=== PATIENT | male | born 1965 | race Caucasian/White ===

== ENCOUNTER 2017-06-13 08:54 | Emergency (ER) | payer BC, OTHER ==
[~2017-06-13] VITALS: Ht 182.9 cm; Wt 66.9 kg
[~2017-06-13 08:54] MED LIST: QUIL PO
[2017-06-13 09:09] VITALS: TEMP 36.8; Ht 182.9 cm; Wt 66.9 kg
[2017-06-13] MEDS ORDERED: PROPARACAINE HCL 0.5% OP SOLN 15 ML BTL OP STA (09:12)
[2017-06-13] MEDS ORDERED: CIPROFLOXACIN HCL 0.3% OP SOLN 2.5 ML BTL OP STA (09:33)
[2017-06-13] MEDS ORDERED: CIPR0.3S OP (09:36)
[2017-06-13] MEDS ORDERED: VALA1TAB31 PO (09:36)
--- NOTE | 2017-06-13 09:38 | EMERGENCY ROOM VISIT NOTE ---
History First contact with patient: 09:03 Chief Complaint: EYE ASSESSMENT Stated Complaint: SOMETHING IN RIGHT EYE History of Present Illness The patient is a 51 year old male who presents to the Emergency Room via private vehicle accompanied by female with complaints of "something in right eye ". The patient states that this past Thursday he was working and was blowing dust, noting that later that day his right eye became irritated. He notes it was most of the concrete dust. He now rates irritation is a 3/10. There is blurred vision. He also developed a small little rash in the corner of his right eye. Tetanus is up-to-date. Review of Systems A complete 6-point Review of Systems was discussed with the patient, with pertinent positives and negatives listed in the History of Present Illness. All remaining Review of Systems questions can be considered negative unless otherwise specified. Past Medical/Surgical History No pertinent. Family History No pertinent. Social History Smoking Status: Current Every Day Smoker Marital Status: Housing Status: lives with significant other Occupation Status: employed Current/Historical Medications Scheduled Ciprofloxacin Hcl (Ophth) (Ciloxan Oph), 1 DROP OP DIRECTED Valacyclovir Hcl (Valtrex), 1 GM PO TID Physical Exam Vital Signs Date Time Temp Pulse Resp B/P (MAP) Pulse Ox O2 Delivery O2 Flow Rate FiO2 06/13/17 10:03 74 18 148/96 99 Room Air 06/13/17 09:09 36.8 82 20 160/101 97 Room Air Right Eye Acuity: 20/200 without glasses Left Eye Acuity: 20/30 without glasses Physical Exam VITAL SIGNS - Vital signs and nursing notes were reviewed. Stable. GENERAL - 51-year-old male appearing his stated age. Communicates well with provider and answers questions appropriately. HEAD - Normocephalic, Atraumatic. No Diaz's Sign or Raccoon's Eyes. No depressed skull fractures palpable. EYES - PERRL with EOMI bilaterally. Sclera without noticeable foreign body or excoriations. Bulbar conjunctival injection noted in the R eye. Without subconjunctival hemorrhage. No Hyphema. Slit lamp examination performed as further described. EARS - No deformities of external structures noted on gross examination bilaterally. Handle of malleus, umbo, cone of light, pars tensa/flaccid all easily visualized. NOSE - Midline and without cyanosis. Without discharge. MOUTH/OROPHARYNX - Without perioral cyanosis. Slit Lamp Examination was performed of the R eye(s). Alcaine drops were applied to the affected eye(s) for proper anesthetization. The affected eye(s) were stained with Fluorescein stain to precipitate adequate visualization of any conjunctival/scleral excoriations or ulcers. The patient's face was comfortably rested on the chin guard of the slit lamp apparatus. The lights were dimmed and the affected eye(s) were thoroughly examined under microscopy using the blue light. Central axis uptake was present in a dendritic fashion. Additionally, the eye(s) were examined under microscopy using the regular light. Close examination revealed dendritic corneal lesion. Patient tolerated the procedure well and no complications were met. Medical Decision & Procedures Medications Administered Medications (Trade) Dose Ordered Sig/Humberto Route Start Time Stop Time Status Last Admin Dose Admin Proparacaine HCl (Alcaine 0.5% Oph Soln) 1 drops NOW STAT OP 06/13/17 09:12 06/13/17 09:14 DC 06/13/17 09:12 1 DROPS Valacyclovir HCl (Valtrex Tab) 1,000 mg NOW STAT PO 06/13/17 09:33 06/13/17 09:35 DC 06/13/17 09:56 1,000 MG Ciprofloxacin HCl (Ciprofloxacin 0.3% Op Soln) 1 drops NOW STAT OP 06/13/17 09:33 06/13/17 09:35 DC 06/13/17 09:56 1 DROPS Medical Decision Patient was seen and evaluated as above. The patient presents to us today with right eye discomfort. There is a small rash at the lateral canthus of the right eye. The concern with the slit lamp exam as there is dendritic lesions suggestive of herpes zoster ophthalmicus. 1 g of Valtrex was given as well as Ciloxan eyedrops. Case was discussed with the attending, as well as the on- call gold beater, Dr. Tam. He recommends Valtrex, and lubricating eyedrops or an antibiotic drop. I elected to use Ciloxan. The patient appears stable for outpatient management, and is to call the gold beater first thing Thursday morning. He is to return if worsening. He was educated upon worrisome symptoms in which to return, had questions a discharge, and was discharged home in good condition. In the evaluation and treatment of this patient, the following differential diagnoses were considered: Corneal Abrasion, Conjunctivitis, Eye Contusion, Globe Injury, Orbital Floor Injury (Blowout Fracture), Corneal Ulcer, Keratitis , Herpes Zoster Opthalmic, Blepharitis, Orbital Cellulitis, Iritis, Scleritis/ Episcleritis, Uveitis, Temporal Arteritis, Subconjunctival Hemorrhage. Impression Primary Impression: Corneal abrasion Departure Information Dispostion Home / Self-Care Condition GOOD Prescriptions Ciprofloxacin Hcl (Ophth) (CILOXAN OPH) 0.3 % Martita 1 DROP OP DIRECTED, #1 BTL Prov: Galindo Murry PA-C 06/13/17 Valacyclovir Hcl (VALTREX) 1 Gm Tab 1 GM PO TID, #20 TAB Prov: Galindo Murry PA-C 06/13/17 Referrals Damion Aden M.D. (MEDICAL) (PCP) Jaret Tam D.O. Patient Instructions My [facility] Additional Instructions You have been treated in the Emergency Department today for your Corneal Abrasion and concern for shingles in your right eye (herpes zoster ophthalmicus) . You have been prescribed Ciloxan eye drops. This is an antibiotic which will help to prevent an infection from developing in your affected eye. You should use 2 drops in the affected eye every 2 hours while awake for the first 2 days, then every 4 hours for the remaining 5 days. This is a total of a 7-day course for these antibiotic eye drops. You been prescribed Valtrex. This is one gram every 8 hours for 7 days. This is to help treat any potential shingles infection. For pain control, you can use the following [id number] medicines: - Regular strength (325mg/tab) Tylenol (acetaminophen) 2 tabs every 4-6 hours as needed. Do not exceed 12 tablets in a 24 hour period. Avoid taking more than 3 grams (3000 mg) of Tylenol per day. This includes any other sources of acetaminophen you may take on a regular basis. - Regular strength (200 mg/tab) Advil (ibuprofen) 1-2 tabs every 4-6 hours as needed. Do not exceed a dose of 3200 mg per day. You should relax in a quiet, dark place for the rest of the day. You should wear sunglasses while outside for the next few days until your eyes are not as sensitive to the light. You should schedule a follow-up appointment in 2-3 days with your Primary Care Provider or established Eye Doctor (Operations Staff [employer]ist [employer]) for further evaluation and treatment of your Corneal Abrasion. Please call Dr. Tam thursday morning. Please also call workmans comp Return to the Emergency Department if your current symptoms worsen despite treatment course outlined above, or if you develop any of the following symptoms : intractable pain, visual disturbances, loss of vision, increased redness, swelling, drainage, or if you develop a fever.
[2017-06-13 10:03] VITALS: BP 148/96; PULSE 74; O2SAT 99
== END 2017-06-13 10:09 | disposition home or self-care (01) ==
LOC: C.EDA 09:22
DX: S05.01XA Injury of conjunctiva and corneal abrasion without foreign body, right eye, initial encounter (principal); X58.XXXA Exposure to other specified factors, initial encounter; Y92.9 Unspecified place or not applicable; F17.210 Nicotine dependence, cigarettes, uncomplicated

== ENCOUNTER 2017-09-19 09:40 | Emergency (ER) | payer OTHER ==
[~2017-09-19] VITALS: Ht 180.3 cm; Wt 68.0 kg
[2017-09-19 09:42] VITALS: TEMP 36.8; Ht 180.3 cm; Wt 68.0 kg
--- NOTE | 2017-09-19 11:20 | DIAGNOSTIC IMAGING REPORT ---
R RIBS UNILATERAL WITH PA CHEST CLINICAL HISTORY: Right lower rib pain status post trauma COMPARISON STUDY: Chest x-ray dated 08/28/2010 FINDINGS: The erect chest reveals no pneumothorax. There is no focal pulmonary consolidation. There are acute fractures of the right 10th and 11th ribs. There is a trace right pleural effusion IMPRESSION: 1. Acute fractures of the right 10th and 11th ribs. Trace right pleural effusion. No pneumothorax identified. Electronically signed by: Efraín Morales M.D. 09/19/2017 11:18 AM Dictated Date/Time: 09/19/2017 11:16 AM
--- NOTE | 2017-09-19 11:22 | DIAGNOSTIC IMAGING REPORT ---
LUMBAR SPINE 2 OR 3 VIEWS CLINICAL HISTORY: lower back pain COMPARISON STUDY: No previous studies for comparison. FINDINGS: There are acute fractures of the right 10th and 11th ribs. There is a trace right pleural effusion. There is a mild spinal curvature convex to the left. There are moderate degenerative changes with disc space narrowing at the L5-S1 level. No acute lumbar vertebral body fractures or subluxations are visualized. There are scattered air-fluid levels within the abdomen, likely secondary to a mild ileus. IMPRESSION: 1. No acute lumbar fractures or subluxations identified 2. Moderate degenerative changes the L5-S1 level 3. Fractures of the right 10th and 11th ribs. Small right pleural effusion. Electronically signed by: Efraín Morales M.D. 09/19/2017 11:20 AM Dictated Date/Time: 09/19/2017 11:19 AM
[2017-09-19] MEDS ORDERED: OXYCODONE HCL IR 5 MG TAB (IMMEDIATE RELEASE) PO STA (11:27)
[2017-09-19] MEDS ORDERED: OXYC1TAB3 PO (11:31)
[2017-09-19 11:36] VITALS: BP 136/95; PULSE 82; O2SAT 98
--- NOTE | 2017-09-19 13:50 | EMERGENCY ROOM VISIT NOTE ---
History Report prepared by Jayne: Moose Durant Under the Supervision of: Dr. Fan Junior D.O. First contact with patient: 09:47 Chief Complaint: BACK INJURY Stated Complaint: HURT BACK History of Present Illness The patient is a 51 year old male who presents to the Emergency Room with complaints of constant lower back pain beginning two nights ago. He notes his pain radiates to his ribs and twisting makes it worse. The patient states he was playing football and was tackled onto a light in the floor. He notes he has tried ice and heat, but they are not working. He reports he was celebrating the end of classes for work. The patient notes he works on the [employer]. He states he does not have any other past medical history, and he does not take medication. The patient denies urinary symptoms. Source of History: patient Onset: two nights ago Position: back (lower) Timing: constant Modifying Factors (Worsening): other (twisting) Associated Symptoms: No urinary symptoms Review of Systems See HPI for pertinent positives & negatives. A total of 10 systems reviewed and were otherwise negative. Past Medical & Surgical No pertinent past medical history stated. Family History Patient reports no known family medical history. Social History Smoking Status: Current Every Day Smoker Marital Status: Housing Status: lives with significant other Occupation Status: employed Current/Historical Medications Scheduled PRN Oxycodone Immediate Rel Tab (Roxicodone Ir), 5 MG PO Q6H PRN for Pain Allergies Coded Allergies: No Known Allergies (Verified , 09/19/17) Physical Exam Vital Signs Date Time Temp Pulse Resp B/P (MAP) Pulse Ox O2 Delivery O2 Flow Rate FiO2 09/19/17 11:36 82 20 136/95 98 Room Air 09/19/17 09:42 36.8 85 18 160/93 99 Room Air Physical Exam GENERAL: alert, well appearing, well nourished, no distress, non-toxic HEAD: normal cephalic, atraumatic EYE EXAM: normal conjunctiva OROPHARYNX: no exudate, no erythema, lips, buccal mucosa, and tongue normal and mucous membranes are moist EARS: TMs clear b/l NECK: supple, no nuchal rigidity, no adenopathy, non-tender CHEST: stable to compression anteriorly and posteriorly LUNGS: clear to auscultation. Normal chest wall mechanics HEART: no murmurs, S1 normal and S2 normal ABDOMEN: abdomen soft, non-tender, normo-active bowel sounds, no masses, no rebound or guarding. PELVIS: stable to compression anteriorly and posteriorly BACK: Abrasion over the right lower lumbar and paraspinal region that is tender to palpation. UPPER EXTREMITIES: full active and passive range of motion of all joints without tenderness to palpation LOWER EXTREMITIES: Flexion and extension of the hip, knee, ankle, and EHL 5/5 bilaterally. Gross sensation intact. DP 2/4. Patellar and Achilles reflexes are 2/4. Able to walk on heels and toes. NEURO EXAM: Normal sensorium, cranial nerves II-XII grossly intact, normal speech, no gross weakness of arms, no gross weakness of legs. GCS: 15. Medical Decision & Procedures ER Provider Diagnostic Interpretation: Radiology results as stated below per my review and the radiologist's interpretation: R RIBS UNILATERAL WITH PA CHEST CLINICAL HISTORY: Right lower rib pain status post trauma COMPARISON STUDY: Chest x-ray dated 08/28/2010 FINDINGS: The erect chest reveals no pneumothorax. There is no focal pulmonary consolidation. There are acute fractures of the right 10th and 11th ribs. There is a trace right pleural effusion IMPRESSION: 1. Acute fractures of the right 10th and 11th ribs. Trace right pleural effusion. No pneumothorax identified. Electronically signed by: Efraín Morales M.D. 09/19/2017 11:18 AM Dictated Date/Time: 09/19/2017 11:16 AM LUMBAR SPINE 2 OR 3 VIEWS CLINICAL HISTORY: lower back pain COMPARISON STUDY: No previous studies for comparison. FINDINGS: There are acute fractures of the right 10th and 11th ribs. There is a trace right pleural effusion. There is a mild spinal curvature convex to the left. There are moderate degenerative changes with disc space narrowing at the L5-S1 level. No acute lumbar vertebral body fractures or subluxations are visualized. There are scattered air-fluid levels within the abdomen, likely secondary to a mild ileus. IMPRESSION: 1. No acute lumbar fractures or subluxations identified 2. Moderate degenerative changes the L5-S1 level 3. Fractures of the right 10th and 11th ribs. Small right pleural effusion. Electronically signed by: Efraín Morales M.D. 09/19/2017 11:20 AM Dictated Date/Time: 09/19/2017 11:19 AM Medications Administered Medications (Trade) Dose Ordered Sig/Humberto Route Start Time Stop Time Status Last Admin Dose Admin Oxycodone HCl (Roxicodone Immediate Rel Tab) 5 mg NOW STAT PO 09/19/17 11:27 09/19/17 11:28 DC 09/19/17 11:36 5 MG ED Course ED COURSE: Vital signs were reviewed and showed situational hypertension. The patients medical record was reviewed The above diagnostic studies were performed and reviewed. ED treatments and interventions as stated above. 0948: The patient was evaluated in room B12B. A complete history and physical examination was performed. 1124: Upon reevaluation, the patient is is feeling better but still in some discomfort. I discussed my findings with the patient and he understands and agrees with the treatment plan. 1127: Ordered Oxycodone HCl 5mg PO Based on the patients age, coexisting illnesses, exam and lab findings the decision to treat as an outpatient was made. The patient remained stable while under my care. The patient appeared well at the time of discharge. Medical Decision Differential diagnoses include major intracranial, cervical, spinal, thoracic, abdominal, pelvic and neurologic injury. Fracture, contusion, sprain, strain, laceration, abrasions included as well. Patient is a 51-year-old male who presents to ER for given tackled on . He is having severe right lower flank pain. He is acutely tender over palpation of his ribs. X-rays of the lumbar spine and ribs confirmed to rib fractures. There is no large pleural effusion. He has been stable since this past . I did not obtain blood work. Vitals are stable. Patient was updated bedside. He was discharged with pain medications follow-up with PCP as an outpatient. Discussed with Pt concerning signs and symptoms to watch out for. Pt was instructed to follow up with their PCP and discussed with the patient their option to return to the ED at anytime for persistent or worsening symptoms. The appropriate anticipatory guidance and out-patient management, including indications for return to the emergency department, were explained at length to the patient and understood. [place] Drug Monitoring Program Search Results: patient reviewed within database, no issues identified Medication Reconcilliation Current Medication List: was personally reviewed by me Blood Pressure Screening Patient's blood pressure: Elevated blood pressure Blood pressure disposition: Elevated BP felt to be situational Impression Primary Impression: Rib fractures Scribe Attestation The scribe's documentation has been prepared under my direction and personally reviewed by me in its entirety. I confirm that the note above accurately reflects all work, treatment, procedures, and medical decision making performed by me. Departure Information Dispostion Home / Self-Care Prescriptions Oxycodone Immediate Rel Tab (ROXICODONE IR) 5 Mg Tab 5 MG PO Q6H Y for Pain, #14 TAB Prov: Fan Junior, DO 09/19/17 Referrals Damion Aden M.D. (MEDICAL) (PCP) Forms HOME CARE DOCUMENTATION FORM, IMPORTANT VISIT INFORMATION Patient Instructions Fx Sandra Munguia [facility] Additional Instructions Please follow up with your primary care doctor with in the next 24 hours. Any worsening of your symptoms, please return to the ED immediately. This includes any fevers greater than 100.4, worsening pain, chest pain, shortness breath, persistent nausea, vomiting, unable to eat or drink, or any other concerning signs or symptoms from your standpoint. You were given medications during this visit that will inhibit your ability to drive, operate machinery and work. Please do NOT drive, operate machinery or work for the next 12hrs. You were also given a prescription for a narcotic. While taking this medication you should also not drive, operate machinery and or work. Please refrain from any heavy lifting, twisting or turning until your pain completely resolved. Problem Qualifiers Primary Impression: Rib fractures Encounter type: initial encounter Rib fracture type: multiple ribs Fracture type: closed Laterality: unspecified laterality Qualified Codes: S22.49XA - Multiple fractures of ribs, unspecified side, initial encounter for closed fracture
== END 2017-09-19 11:52 | disposition home or self-care (01) ==
LOC: C.EDB 09:42
DX: S22.41XA Multiple fractures of ribs, right side, initial encounter for closed fracture (principal); W03.XXXA Other fall on same level due to collision with another person, initial encounter; Y92.89 Other specified places as the place of occurrence of the external cause; Y93.61 Activity, american tackle football; F17.210 Nicotine dependence, cigarettes, uncomplicated